=== PATIENT | male | born 1955 | race Caucasian/White ===

== ENCOUNTER 2017-07-16 10:43 | Inpatient (IN) | payer MEDICARE, OTHER ==
[~2017-07-16] VITALS: Ht 182.9 cm; Wt 94.0 kg
[2017-07-16 11:12] LABS: BASOPHILS % (AUTO) 0.4 % (0-1); EOSINOPHILS # (AUTO) 0.1 X10'3 (0-0.9); EOSINOPHILS % (AUTO) 1.4 % (0-6); HEMATOCRIT 58.5 % (42.0-52.0); LYMPHOCYTES # (AUTO) 1.6 X10'3 (1.1-4.8); LYMPHOCYTES % (AUTO) 17.8 % (21-51); MEAN CORPUSCULAR HEMOGLOBIN 31.9 PG (27.0-31.0); MEAN CORPUSCULAR HGB CONC 33.9 % (33.0-36.5); MEAN PLATELET VOLUME 7.9 FL (7.4-10.4); MONOCYTES # (AUTO) 0.7 X10'3 (0-0.9); MONOCYTES % (AUTO) 8.6 % (2-12); NEUTROPHILS # (AUTO) 6.3 X10'3 (1.8-7.7); NEUTROPHILS % (AUTO) 71.8 % (42-75); PLATELET COUNT 303 X10'3 (140-440); RED BLOOD COUNT 6.23 X10'6 (4.70-6.10); RED CELL DISTRIBUTION WIDTH 13.8 % (11.5-14.5); WHITE BLOOD COUNT 8.7 X10'3 (4.5-11.0)
[2017-07-16 11:19] LABS: HEMOGLOBIN 19.8 g/dl (14.0-17.9)
[2017-07-16 11:22] LABS: PARTIAL THROMBOPLASTIN TIME 26 SECONDS (22-32); PROTHROMBIN TIME 10.8 SECONDS (9.0-12.0)
[2017-07-16 11:34] LABS: GLUCOSE 116 MG/DL (70-104); POTASSIUM 3.4 MMOL/L (3.5-5.1); SODIUM 134 MMOL/L (135-145)
[2017-07-16 11:35] LABS: ALANINE AMINOTRANSFERASE 49 U/L (12-78); ALKALINE PHOSPHATASE 53 IU/L (46-116); ANION GAP 9 (8-16); ASPARTATE AMINO TRANSFERASE 27 U/L (10-37); BILIRUBIN,TOTAL 0.9 MG/DL (0.1-1.0); BLOOD UREA NITROGEN 12 MG/DL (7-18); BUN/CREATININE RATIO 8.8 (5.4-32.0); CALCIUM 10.1 MG/DL (8.5-10.1); CHLORIDE 96 MMOL/L (99-107); CREATININE 1.36 MG/DL (0.60-1.10); TOTAL CARBON DIOXIDE 28.8 MMOL/L (24-32); TOTAL PROTEIN 7.9 G/DL (6.4-8.2); eGFR 53 ML/MIN
[2017-07-16 12:08] LABS: D-DIMER 0.21 MG/L FEU (0-0.50)
[2017-07-16] MEDS: sodium chloride 0.45% 1,000 ML IV SCH ×2 (12:26→22:26)
[2017-07-16] MEDS ORDERED: acetaminophen 325mg tablet PO PRN (12:30)
[2017-07-16] MEDS ORDERED: magnesium 4gm in 100ml NS 100 ML IV PRN (12:30)
[2017-07-16] MEDS ORDERED: nitroGLYCERIN 0.4mg SUBLingual tab SL PRN ×2 (12:30)
[2017-07-16] MEDS ORDERED: magnesium 2GM in 50ml NS 50 ML IV PRN (12:30)
[2017-07-16] MEDS ORDERED: magnesium Cl slow-release 64mg tablet PO PRN (12:30)
[2017-07-16] MEDS ORDERED: regadenoson 0.4mg/5ml syringe IV PRN (12:30)
[2017-07-16] MEDS ORDERED: CAFFEINE CITRATE 60 MG/3 ML injection vial IV PRN (12:30)
[2017-07-16] MEDS ORDERED: magnesium hydroxide 30ml (MOM) UD suspension PO PRN (12:30)
[2017-07-16] MEDS ORDERED: mag hydrox/Alum hydrox/simeth 30ml oral suspension PO PRN (12:30)
[2017-07-16] MEDS: K and/or MAG REPLACEMENT MC SCH (12:30)
[2017-07-16] MEDS ORDERED: albuterol 2.5 MG/3 ML nebule NEB PRN (12:30)
[2017-07-16] MEDS ORDERED: metoprolol tartrate 1mg/ml inj IV PRN (12:30)
[2017-07-16] MEDS ORDERED: potassium Cl 20 mEq SR tablet PO PRN (12:30)
[2017-07-16] MEDS ORDERED: potassium Cl 40MEQ/NS 500ml 500 ML IV PRN ×2 (12:30)
[2017-07-16] MEDS ORDERED: ondansetron/PF 4mg/2ml inj IV PRN (12:30)
[2017-07-16] MEDS ORDERED: iohexol 350MG/ML 100ml bottle IV ONE (13:27)
[2017-07-16 13:50] LABS: ABG BASE EXCESS 1.2 mmol/L (-2.0-3.0); ABG HCO3 23.1 mmol/L (22.0-26.0); ABG OXYGEN SATURATION 97.1 % (95-98); ABG PCO2 (T) 30.6 mmHg (35.0-48.0); ABG PH (T) 7.495 (7.350-7.450); ABG PO2 (T) 88.9 mmHg (83-108); ALLEN'S TEST Positive; FCOHb 0.3 % (0.5-1.5); FMetHb 0.4 % (0.3-1.12); FO2Hb 96.4 % (94-100); PATIENT TEMPERATURE 36.7; TOTAL HEMOGLOBIN 20.6 G/dl (14.0-18.0)
[2017-07-16] MEDS: heparin, porcine 5000 units/ml vial SQ SCH (16:00)
[2017-07-16] MEDS ORDERED: atenolol 50mg tablet PO SCH (16:00)
[2017-07-16] MEDS: acetaminophen 325mg tablet PO PRN (17:23)
[2017-07-16] MEDS: LORazepam 1 MG tablet PO PRN (17:23)
[2017-07-16 19:00] VITALS: BP 121/93
[2017-07-16] MEDS: temazepam 15mg capsule PO PRN (22:41)
[2017-07-16 23:00] VITALS: BP 89/65
[2017-07-17] VITALS (18 sets, daily range): BP systolic 91–167; BP diastolic 53–90
[2017-07-17] MEDS: heparin, porcine 5000 units/ml vial SQ SCH (01:02)
[2017-07-17] MEDS: potassium Cl 20 mEq SR tablet PO PRN (03:37)
[2017-07-17] MEDS: sodium chloride 0.45% 1,000 ML IV SCH ×2 (03:38→18:26)
[2017-07-17] MEDS: acetaminophen 325mg tablet PO PRN ×2 (03:41→11:33)
[2017-07-17] MEDS: K and/or MAG REPLACEMENT MC SCH (03:53)
[2017-07-17 05:36] LABS: BASOPHILS % (AUTO) 0.3 % (0-1); EOSINOPHILS # (AUTO) 0.2 X10'3 (0-0.9); HEMATOCRIT 52.6 % (42.0-52.0); LYMPHOCYTES # (AUTO) 1.5 X10'3 (1.1-4.8); LYMPHOCYTES % (AUTO) 26.9 % (21-51); MEAN CORPUSCULAR HEMOGLOBIN 31.8 PG (27.0-31.0); MEAN CORPUSCULAR HGB CONC 34.4 % (33.0-36.5); MEAN CORPUSCULAR VOLUME 92.6 FL (78-98); MEAN PLATELET VOLUME 7.9 FL (7.4-10.4); MONOCYTES # (AUTO) 0.7 X10'3 (0-0.9); MONOCYTES % (AUTO) 12.1 % (2-12); NEUTROPHILS # (AUTO) 3.3 X10'3 (1.8-7.7); NEUTROPHILS % (AUTO) 57.7 % (42-75); PLATELET COUNT 264 X10'3 (140-440); RED BLOOD COUNT 5.68 X10'6 (4.70-6.10); WHITE BLOOD COUNT 5.7 X10'3 (4.5-11.0)
[2017-07-17 05:54] LABS: ALANINE AMINOTRANSFERASE 42 U/L (12-78); ALBUMIN 3.8 G/DL (3.4-5.0); ALBUMIN/GLOBULIN RATIO 1.1 (1.1-1.5); ALKALINE PHOSPHATASE 45 IU/L (46-116); ANION GAP 7 (8-16); ASPARTATE AMINO TRANSFERASE 21 U/L (10-37); BILIRUBIN,TOTAL 1.2 MG/DL (0.1-1.0); BLOOD UREA NITROGEN 11 MG/DL (7-18); BUN/CREATININE RATIO 10.4 (5.4-32.0); CALCIUM 9.4 MG/DL (8.5-10.1); CHLORIDE 97 MMOL/L (99-107); CHOL/HDL RATIO 4.4 (0.00-4.99); CHOLESTEROL 158 MG/DL (0-200); CREATININE 1.06 MG/DL (0.60-1.10); GLUCOSE 104 MG/DL (70-104); HDL CHOLESTEROL 36 MG/DL (35-60); LDL CHOLESTEROL 106 MG/DL (50-100); PHOSPHORUS 3.4 MG/DL (2.3-4.5); POTASSIUM 3.5 MMOL/L (3.5-5.1); SODIUM 134 MMOL/L (135-145); TOTAL CARBON DIOXIDE 30.5 MMOL/L (24-32); TOTAL PROTEIN 7.4 G/DL (6.4-8.2); TRIGLYCERIDES 114 MG/DL (20-135); eGFR 71 ML/MIN
[2017-07-17 06:09] LABS: HEMOGLOBIN 18.1 g/dl (14.0-17.9)
[2017-07-17] MEDS: rivaroxaban 20mg tablet PO SCH (07:41)
[2017-07-17] MEDS ORDERED: CAFFEINE CITRATE 60 MG/3 ML injection vial IV ONE (08:37)
[2017-07-17] MEDS ORDERED: regadenoson 0.4mg/5ml syringe IV ONE (08:37)
[2017-07-17] MEDS: sotalol 80mg tablet PO SCH ×2 (10:23→19:11)
[2017-07-17] MEDS ORDERED: DILT120C52 PO (10:31)
[2017-07-17] MEDS ORDERED: TEST200V10 (10:31)
[2017-07-17] MEDS ORDERED: LISI1TAB11 PO (10:31)
[2017-07-17] MEDS: LORazepam 1 MG tablet PO PRN ×2 (13:41→20:31)
[2017-07-18] MEDS: temazepam 15mg capsule PO PRN (00:16)
[2017-07-18 03:00] VITALS: BP 106/60
[2017-07-18] MEDS: sodium chloride 0.45% 1,000 ML IV SCH (04:26)
[2017-07-18 05:52] LABS: BASOPHILS % (AUTO) 0.8 % (0-1); EOSINOPHILS # (AUTO) 0.2 X10'3 (0-0.9); EOSINOPHILS % (AUTO) 3.9 % (0-6); HEMATOCRIT 50.5 % (42.0-52.0); HEMOGLOBIN 17.5 g/dl (14.0-17.9); LYMPHOCYTES # (AUTO) 1.5 X10'3 (1.1-4.8); LYMPHOCYTES % (AUTO) 26.2 % (21-51); MEAN CORPUSCULAR HEMOGLOBIN 31.9 PG (27.0-31.0); MEAN CORPUSCULAR HGB CONC 34.7 % (33.0-36.5); MEAN CORPUSCULAR VOLUME 91.9 FL (78-98); MEAN PLATELET VOLUME 7.9 FL (7.4-10.4); MONOCYTES # (AUTO) 0.6 X10'3 (0-0.9); MONOCYTES % (AUTO) 11.4 % (2-12); NEUTROPHILS # (AUTO) 3.3 X10'3 (1.8-7.7); NEUTROPHILS % (AUTO) 57.7 % (42-75); PLATELET COUNT 274 X10'3 (140-440); RED BLOOD COUNT 5.49 X10'6 (4.70-6.10); RED CELL DISTRIBUTION WIDTH 13.9 % (11.5-14.5); WHITE BLOOD COUNT 5.7 X10'3 (4.5-11.0)
[2017-07-18 06:00] VITALS: BP 110/73
[2017-07-18 06:11] LABS: ALANINE AMINOTRANSFERASE 43 U/L (12-78); ALBUMIN 3.8 G/DL (3.4-5.0); ALBUMIN/GLOBULIN RATIO 1.1 (1.1-1.5); ALKALINE PHOSPHATASE 43 IU/L (46-116); ANION GAP 9 (8-16); ASPARTATE AMINO TRANSFERASE 23 U/L (10-37); BLOOD UREA NITROGEN 10 MG/DL (7-18); BUN/CREATININE RATIO 10.6 (5.4-32.0); CALCIUM 8.9 MG/DL (8.5-10.1); CHLORIDE 98 MMOL/L (99-107); CREATININE 0.94 MG/DL (0.60-1.10); GLUCOSE 100 MG/DL (70-104); MAGNESIUM 2.1 MG/DL (1.5-2.4); PHOSPHORUS 2.6 MG/DL (2.3-4.5); POTASSIUM 3.3 MMOL/L (3.5-5.1); SODIUM 135 MMOL/L (135-145); TOTAL PROTEIN 7.4 G/DL (6.4-8.2); eGFR 81 ML/MIN
[2017-07-18] MEDS: potassium Cl 20 mEq SR tablet PO PRN (07:22)
[2017-07-18] MEDS: sotalol 80mg tablet PO SCH (07:22)
[2017-07-18] MEDS: rivaroxaban 20mg tablet PO SCH (07:22)
[2017-07-18] MEDS: K and/or MAG REPLACEMENT MC SCH (07:25)
[2017-07-18] MEDS ORDERED: RIVA20TA PO (09:58)
[2017-07-18] MEDS ORDERED: SOTA80TA69 PO (09:58)
[2017-07-18 11:00] VITALS: BP 125/91
== END 2017-07-18 13:30 | disposition home or self-care (01) | DRG 683 ==
LOC: ER 10:43 → ED HOLD 12:26 → PCU 3S 16:50
PROVIDERS: ADMIT Family Medicine; ATTEND Family Medicine
PROC: B32T1ZZ Computerized Tomography (CT Scan) of Left Pulmonary Artery using Low Osmolar Contrast (ICD-10-PCS; 2017-07-16)
PROC: B3201ZZ Computerized Tomography (CT Scan) of Thoracic Aorta using Low Osmolar Contrast (ICD-10-PCS; 2017-07-16)
PROC: B32S1ZZ Computerized Tomography (CT Scan) of Right Pulmonary Artery using Low Osmolar Contrast (ICD-10-PCS; 2017-07-16)
PROC: 4A02XM4 Measurement of Cardiac Total Activity, External Approach (ICD-10-PCS; principal; 2017-07-17)
PROC: 3E073KZ Introduction of Other Diagnostic Substance into Coronary Artery, Percutaneous Approach (ICD-10-PCS; 2017-07-17)
DX: N17.9 Acute kidney failure, unspecified (principal); I48.92 Unspecified atrial flutter; I48.0 Paroxysmal atrial fibrillation; B19.20 Unspecified viral hepatitis C without hepatic coma; I10 Essential (primary) hypertension; E78.5 Hyperlipidemia, unspecified; F41.1 Generalized anxiety disorder; E78.00 Pure hypercholesterolemia, unspecified; M54.9 Dorsalgia, unspecified; R00.0 Tachycardia, unspecified; G89.29 Other chronic pain; Z79.01 Long term (current) use of anticoagulants; Z88.0 Allergy status to penicillin; Z82.49 Family history of ischemic heart disease and other diseases of the circulatory system; Z87.891 Personal history of nicotine dependence; Z79.899 Other long term (current) drug therapy; Z79.82 Long term (current) use of aspirin
CPT/HCPCS: 36415; 36600; 71045; 71275; 78451; 80053; 80061; 82803; 83735; 83880; 84100; 84439; 84443; 84484; 85018; 85025; 85379; 85610; 85730; 87070; 93005; 93017; 93306; 99285; A9500; J1644; J3480; J7030; Q9967

== ENCOUNTER 2018-05-25 13:22 | Inpatient (IN) | payer MEDICARE, SELFPAY, OTHER | END 2018-05-28 12:50 | disposition home or self-care (01) | LOC: ER 13:22 → PCU 3S 05-26 07:35 → MED 3N 05-27 18:15 → ED HOLD 20:03 | DX: I48.0 Paroxysmal atrial fibrillation (principal); N17.0 Acute kidney failure with tubular necrosis; E87.1 Hypo-osmolality and hyponatremia; I50.30 Unspecified diastolic (congestive) heart failure ==

== ENCOUNTER 2019-05-14 05:39 | Emergency (ER) | payer MEDICARE ==
[~2019-05-14] VITALS: Ht 182.9 cm; Wt 97.7 kg
[~2019-05-14 05:39] MED LIST: AMIO200T61 PO; CLON-529 PO; CYCL-394 PO; LOSA25TA96 PO; METO-467 PO; RIVA20TA PO
[2019-05-14 07:09] LABS: EOSINOPHILS # (AUTO) 0.1 X10'3 (0-0.9); MEAN CORPUSCULAR HGB CONC 35.5 g/dL (33.0-36.5); MEAN PLATELET VOLUME 6.2 FL (7.4-10.4); MONOCYTES # (AUTO) 0.5 X10'3 (0-0.9); NEUTROPHILS # (AUTO) 2.8 X10'3 (1.8-7.7); RED BLOOD COUNT 4.65 X10'6 (4.70-6.10); WHITE BLOOD COUNT 4.5 X10'3 (4.5-11.0)
[2019-05-14] MEDS ORDERED: diazepam inj 5 MG/ML inj. IV ONE (07:10)
[2019-05-14 07:11] LABS: BASOPHILS % (AUTO) 0.9 % (0-1); EOSINOPHILS % (AUTO) 1.6 % (0-6); HEMATOCRIT 43.1 % (42.0-52.0); HEMOGLOBIN 15.3 g/dl (14.0-17.9); LYMPHOCYTES # (AUTO) 1.1 X10'3 (1.1-4.8); LYMPHOCYTES % (AUTO) 23.8 % (21-51); MEAN CORPUSCULAR HEMOGLOBIN 32.9 PG (27.0-31.0); MEAN CORPUSCULAR VOLUME 92.7 FL (78-98); NEUTROPHILS % (AUTO) 61.7 % (42-75); PLATELET COUNT 425 X10'3 (140-440); RED CELL DISTRIBUTION WIDTH 13.8 % (11.5-14.5)
--- NOTE | 2019-05-14 07:17 | NUR ---
recieved verbal order to change IV valium to PO, verbal order 5mg PO valium
[2019-05-14] MEDS ORDERED: diazepam 5mg tablet PO ONE (07:20)
[2019-05-14 07:22] LABS: ALANINE AMINOTRANSFERASE 46 U/L (12-78); ALBUMIN 3.9 G/DL (3.4-5.0); ALBUMIN/GLOBULIN RATIO 1.1 (1.1-1.5); ALKALINE PHOSPHATASE 33 IU/L (46-116); ANION GAP 6 (8-16); ASPARTATE AMINO TRANSFERASE 30 U/L (10-37); BILIRUBIN,TOTAL 0.5 MG/DL (0.1-1.0); BLOOD UREA NITROGEN 11 MG/DL (7-18); BUN/CREATININE RATIO 9.4 (5.4-32.0); CALCIUM 8.9 MG/DL (8.5-10.1); CHLORIDE 101 MMOL/L (99-107); CREATININE 1.17 MG/DL (0.60-1.10); GLUCOSE 132 MG/DL (70-104); MAGNESIUM 1.8 MG/DL (1.5-2.4); POTASSIUM 3.9 MMOL/L (3.5-5.1); SODIUM 137 MMOL/L (135-145); TOTAL CARBON DIOXIDE 29.6 MMOL/L (24-32); TOTAL PROTEIN 7.6 G/DL (6.4-8.2); eGFR 63 ML/MIN
[2019-05-14] MEDS ORDERED: cloNIDine 0.1 mg tablet PO ONE (07:50)
--- NOTE | 2019-05-14 08:14 | NUR ---
PT REPORTS HEADACHE, DR SANDERS NOTIFED AND RECEIVED VERBAL ORDER 650 MG TYLENOL, PT LAST TOOK TYLENOL 0200 TODAY
[2019-05-14] MEDS ORDERED: acetaminophen 325mg tablet PO ONE (08:15)
[2019-05-14 09:26] VITALS: BP 140/95
== END 2019-05-14 09:27 | disposition home or self-care (01) ==
LOC: ER 05:40
DX: I10 Essential (primary) hypertension (principal); J34.89 Other specified disorders of nose and nasal sinuses; R09.81 Nasal congestion; I48.91 Unspecified atrial fibrillation; E78.00 Pure hypercholesterolemia, unspecified; G89.29 Other chronic pain; Z98.890 Other specified postprocedural states; Z56.0 Unemployment, unspecified; Z88.0 Allergy status to penicillin; Z88.8 Allergy status to other drugs, medicaments and biological substances
CPT/HCPCS: 36415; 71045; 80053; 83735; 84484; 85025; 93005; 99285